=== PATIENT | female | born 1985 | race Caucasian/White ===

== ENCOUNTER 2016-12-01 08:30 | Emergency (ER) | payer BC, OTHER ==
[2016-12-01] MEDS ORDERED: Ketorolac INJ* 30 MG/ML 1 ML VIAL IV PUSH ONE (09:44)
[2016-12-01] MEDS ORDERED: Dexamethasone IV* 4 MG/ML 1 ML (4 MG) IV SLOW PU ONE (09:45)
[2016-12-01] MEDS ORDERED: diPHENhydraMINE IV* 25 MG in NS 0.9% 50 ML* 50 ML IVPB ONE (09:45)
[2016-12-01] MEDS ORDERED: diPHENhydraMINE IV* 50 MG/ML 1 ml VIAL (BENADRYL) IV ONE (09:45)
[2016-12-01] MEDS ORDERED: Promethazine INJ(RESTRICTED)* 25 MG/ML 1 ML VIAL IV ONE (09:46)
[2016-12-01] MEDS ORDERED: NS 0.9% 50 ML* 50 ML ONE (09:59)
[2016-12-01] MEDS ORDERED: Promethazine INJ(RESTRICTED)* 25 MG in NS 0.9% 50 ML* 50 ML IVPB ONE (10:00)
[2016-12-01] MEDS: NS 0.9% 1000 ML* 2,000 ML IV ONE ×2 (10:06→11:30)
[2016-12-01] MEDS ORDERED: Morphine INJ* 4 MG/ML 1 ML CARPUJECT IV ONE ×2 (13:03→16:18)
[2016-12-01] MEDS ORDERED: Ondansetron INJ* 2 MG/ML VIAL IV ONE (13:03)
[2016-12-01] MEDS ORDERED: HYDROcodone/ACETAMIN 5-325 MG* 1 TAB PO ONE (15:34)
[2016-12-01] MEDS ORDERED: Morphine INJ* 4 MG/ML 1 ML CARPUJECT ONE (15:53)
[2016-12-01 16:17] VITALS: BP 128/74
--- NOTE | 2016-12-03 11:42 | ED ---
Andrew Valderrama Adam, scribed for Travis Mcneil MD on 12/01/16 at 0939 . Headache - HPI Summary HPI Summary: A 31 y/o female presents to the ED c/o migraine headache that started yesterday when she was out running errands. She is unsure of the trigger, but has a significant migraine history and states this feels similar to prior migraines and is getting progressively worse. The headache is located behind her left eye and base of her neck and she is sensitive to light and smell. Patient also vomited once, but denies dizziness and lightheadedness. Patient states she receives Botox treatment for her headaches and her last treatment was on . Her symptoms usually get worse when she is at the end of the 3 month treatment. Scheduled for another treatment on 12/14/16. - History Of Current Complaint Chief Complaint: EDHeadache Stated Complaint: migraine Time Seen by Provider: 12/01/16 09:06 Hx Obtained From: Patient Onset/Duration: Sudden Onset, Started days ago - Yesterday Initially Headache Was: Moderate Currently Pain Is: Moderate Timing: Constant Character: Migraine Aggravating Factor: Other - Unknown Allevating Factors: Nothing Associated Signs And Symptoms: Vomiting - Once - Allergies/Home Medications Allergies/Adverse Reactions: Allergies Allergy/AdvReac Type Severity Reaction Status Date / Time Sulfa Antibiotics Allergy Hives Verified 11/25/16 12:11 Tramadol Allergy RASH AND Verified 11/25/16 12:11 HIVES ENVIRONMENTAL ALLERGIES Allergy SNEEZING, Uncoded 11/25/16 12:11 COUGH, ITCHY WATERY EYES, RUNNY NOSE, STUFFY Home Medications: Home Medications Acetaminophen TAB* [Tylenol TAB*] 500 mg PO Q6H PRN 12/01/16 [History Confirmed 12/01/16] Benadryl PO* 50 mg PO .ONCE 12/01/16 [History Confirmed 12/01/16] PMH/Surg Hx/FS Hx/Imm Hx Endocrine/Hematology History: Reports: Hx Anemia - HX OF BEFORE HYSTERECTOMY Denies: Hx Anticoagulant Therapy, Hx Diabetes, Hx Thyroid Disease Cardiovascular History: Reports: Other Cardiovascular Problems/Disorders - Mitral valve prolapse Denies: Hx Hypertension, Hx Pacemaker/ICD Respiratory History: Reports: Hx Asthma - EXERCISE INDUCED OR RESPIRATORY INFECTION, Hx Chronic Bronchitis, Hx Pneumonia, Hx Seasonal Allergies Denies: Hx Chronic Obstructive Pulmonary Disease (COPD) GI History: Reports: Hx Gastroesophageal Reflux Disease - per patient on Prilosec bid for condition, Other GI Disorders - eating disorder. anorexia History: Denies: Hx Dialysis, Hx Renal Disease Musculoskeletal History: Reports: Hx Scoliosis Denies: Hx Rheumatoid Arthritis, Hx Osteoporosis Sensory History: Denies: Hx Contacts or Glasses, Hx Eye Injury, Hx Hearing Aid, Hx Hearing Problem Opthamlomology History: Denies: Hx Contacts or Glasses, Hx Eye Injury Neurological History: Reports: Hx Headaches, Hx Migraine, Other Neuro Impairments/Disorders - PITIUTARY MASS CONTROL WITH MEDS Denies: Hx Dementia, Hx Seizures Psychiatric History: Reports: Hx Anxiety - CONTROL WITH MEDS, Hx Eating Disorder - anorexia/purging, Hx Depression, Hx Post Traumatic Stress Disorder, Hx Inpatient Treatment - [facility] [place], [facility] Tx, Hx Suicide Attempt Denies: Hx Panic Disorder, Hx of Violent Episodes Against Others, Hx Substance Abuse - Surgical History Surgery Procedure, Year, and Place: 2007 HYSTERECTOMY, [place] SURGERY ON LEFT INDEX FINGER RECONNECTED NERVE. 2006 RIGHT SHOULDER REPAIR, [place]. 2001 & 2003 DILATION & CURETTAGE,. BILATERAL MYRINGOTOMY WITH TUBES A CHILD. EYE SURGERY TO CORRECT EYES (CROSSED EYED), A CHILD, Hx Anesthesia Reactions: No - Immunization History Date of Tetanus Vaccine: One year ago. Date of Influenza Vaccine: 10/05/16 Infectious Disease History: No Infectious Disease History: Denies: Hx Clostridium Difficile, Hx Hepatitis, Hx Human Immunodeficiency Virus (HIV), Hx Shingles, Hx Tuberculosis, Traveled Outside the [place] in Last 30 Days - Family History Known Family History: Positive: None Negative: Cardiac Disease, Hypertension, Diabetes - Social History Alcohol Use: Occasionally Alcohol Amount: 0-3 drinks per week. last drink 2 nights ago Hx Substance Use: No Substance Use Type: Reports: Prescribed Hx Tobacco Use: No Smoking Status (MU): Never Smoked Tobacco Have You Smoked in the Last Year: No Review of Systems Constitutional: Negative Negative: Fever, Chills Eyes: Negative Negative: Erythema ENT: Negative Negative: Sore Throat Cardiovascular: Negative Negative: Chest Pain Respiratory: Negative Negative: Shortness Of Breath, Cough Positive: Vomiting. Negative: Abdominal Pain, Nausea Genitourinary: Negative Negative: dysuria, hematuria Musculoskeletal: Negative Negative: Myalgia Skin: Negative Negative: Rash Neurological: Other - Negative: dizziness, lightheadedness Positive: Headache - Sensitive to light and smell Psychological: Normal All Other Systems Reviewed And Are Negative: Yes Physical Exam - Summary Physical Exam Summary: Constitutional: Well-developed, Well-nourished, Alert. (-) Distressed Skin: Warm, Dry HENT: Normocephalic; Atraumatic Eyes: Conjunctiva normal Neck: Musculoskeletal ROM normal neck. (-) JVD, (-) Stridor, (-) Tracheal deviation Cardio: Rhythm regular, rate normal, Heart sounds normal; Intact distal pulses; The pedal pulses are 2+ and symmetric. Radial pulses are 2+ and symmetric. (-) Murmur Pulmonary/Chest wall: Effort normal. (-) Respiratory distress, (-) Wheezes, (-) Rales Abd: Soft, (-) Tenderness, (-) Distension, (-) Guarding, (-) Rebound Musculoskeletal: (-) Edema Lymph: (-) Cervical adenopathy Neuro: Alert, Oriented x3 Psych: Mood and affect Normal Vital Signs On Initial Exam: Initial Vitals Temp Pulse Resp BP Pulse Ox 98.3 F 82 16 122/79 100 12/01/16 08:34 12/01/16 08:34 12/01/16 08:34 12/01/16 08:34 12/01/16 08:34 - Cosby Coma Scale Coma Scale Total: 15 Diagnostics - Vital Signs Vital Signs Temp Pulse Resp BP Pulse Ox 12/01/16 08:34 98.3 F 82 16 122/79 100 - Laboratory Lab Statement: Any lab studies that have been ordered have been reviewed, and results considered in the medical decision making process. Headache Course/Dx - Diagnoses Provider Diagnoses: Migraine Discharge - Discharge Plan Condition: Stable Disposition: HOME Referrals: Wendy Rubin MD [Medical Doctor] - 2 Days Additional Instructions: Return to the emergency department for changing or worsening symptoms The documentation as recorded by the Andrew singh Adam accurately reflects the service I personally performed and the decisions made by , Travis Mcneil MD.
== END 2016-12-01 16:24 | disposition home or self-care (01) ==
LOC: ED 08:30
DX: G43.909 Migraine, unspecified, not intractable, without status migrainosus (principal); R11.10 Vomiting, unspecified
CPT/HCPCS: 96361; 96374; 99282; J1100; J1200; J1885; J2270; J2405; J2550

== ENCOUNTER → 2017-01-29 | Emergency (ER) | payer BC ==
[~2017-01-29] MED LIST: HYDROmorphone INJ* 1 MG/ML CARPUJECT SYRINGE IV SLOW PU ONE; Ketorolac INJ* 30 MG/ML 1 ML VIAL IV ONE; Metoclopramide IV* 5 MG/ML 2 ML VIAL IV ONE; NS 0.9% 1000 ML* 1,000 ML IV ONE; diPHENhydraMINE IV* 50 MG/ML 1 ml VIAL (BENADRYL) IV ONE
--- NOTE | 2017-01-29 10:55 | ED ---
Headache - HPI Summary HPI Summary: Patient presents with headache that is consistent with her typical migraine. This began yesterday and has continued into today. She has had a URI for approximately 2 weeks and began antibiotics yesterday for sinusitis. Since then she has felt nauseous, with right sided headache and right sided neck muscle pain. She denies fever, chills, vomiting, or vision changes. She is followed by Dr. Rubin for her 15 year migraine history. - History Of Current Complaint Chief Complaint: EDHeadache Stated Complaint: HEAD PRESSURE, NECK PAIN, SINUS INFECTION Time Seen by Provider: 01/29/17 08:52 Hx Obtained From: Patient, Family/Hospitality Intern Onset/Duration: Gradual Onset, Started days ago - 1 Initially Headache Was: Moderate Currently Pain Is: Moderate Timing: Constant Character: Dull, Pressure, Typical Headache, Migraine Location of Headache: Temporal - right Aggravating Factor: Bright Lights Allevating Factors: Nothing Associated Signs And Symptoms: Nausea, Sinus Pressure, Neck Pain - right sided into trapezius Related History: Similar Episode/DX As: - history of migraine - Allergies/Home Medications Allergies/Adverse Reactions: Allergies Allergy/AdvReac Type Severity Reaction Status Date / Time Sulfa Antibiotics Allergy Hives Verified 01/29/17 08:48 Tramadol Allergy RASH AND Verified 01/29/17 08:48 HIVES ENVIRONMENTAL ALLERGIES Allergy SNEEZING, Uncoded 01/29/17 08:48 COUGH, ITCHY WATERY EYES, RUNNY NOSE, STUFFY PMH/Surg Hx/FS Hx/Imm Hx Endocrine/Hematology History: Reports: Hx Anemia - HX OF BEFORE HYSTERECTOMY Denies: Hx Anticoagulant Therapy, Hx Diabetes, Hx Thyroid Disease Cardiovascular History: Reports: Other Cardiovascular Problems/Disorders - Mitral valve prolapse Denies: Hx Hypertension, Hx Pacemaker/ICD Respiratory History: Reports: Hx Asthma - EXERCISE INDUCED OR RESPIRATORY INFECTION, Hx Chronic Bronchitis, Hx Pneumonia, Hx Seasonal Allergies Denies: Hx Chronic Obstructive Pulmonary Disease (COPD) GI History: Reports: Hx Gastroesophageal Reflux Disease - per patient on Prilosec bid for condition, Other GI Disorders - eating disorder. anorexia History: Denies: Hx Dialysis, Hx Renal Disease Musculoskeletal History: Reports: Hx Scoliosis Denies: Hx Rheumatoid Arthritis, Hx Osteoporosis Sensory History: Denies: Hx Contacts or Glasses, Hx Eye Injury, Hx Hearing Aid, Hx Hearing Problem Opthamlomology History: Denies: Hx Contacts or Glasses, Hx Eye Injury Neurological History: Reports: Hx Headaches, Hx Migraine, Other Neuro Impairments/Disorders - PITIUTARY MASS CONTROL WITH MEDS Denies: Hx Dementia, Hx Seizures Psychiatric History: Reports: Hx Anxiety - CONTROL WITH MEDS, Hx Eating Disorder - anorexia/purging, Hx Depression, Hx Post Traumatic Stress Disorder, Hx Inpatient Treatment - [facility] [place], Hx Community Mental Health Tx, Hx Suicide Attempt Denies: Hx Panic Disorder, Hx of Violent Episodes Against Others, Hx Substance Abuse - Surgical History Surgery Procedure, Year, and Place: 2007 HYSTERECTOMY, [place] SURGERY ON LEFT INDEX FINGER RECONNECTED NERVE. 2006 RIGHT SHOULDER REPAIR, [place]. 2001 & 2003 DILATION & CURETTAGE,. BILATERAL MYRINGOTOMY WITH TUBES A CHILD. EYE SURGERY TO CORRECT EYES (CROSSED EYED), A CHILD, Hx Anesthesia Reactions: No - Immunization History Date of Tetanus Vaccine: One year ago. Date of Influenza Vaccine: 10/05/16 Infectious Disease History: No Infectious Disease History: Denies: Hx Clostridium Difficile, Hx Hepatitis, Hx Human Immunodeficiency Virus (HIV), Hx Shingles, Hx Tuberculosis, Traveled Outside the in Last 30 Days - Family History Known Family History: Positive: None Negative: Cardiac Disease, Hypertension, Diabetes - Social History Occupation: Employed Part-time Lives: With Family Alcohol Use: Occasionally Alcohol Amount: 0-3 drinks per week. last drink 2 nights ago Hx Substance Use: No Substance Use Type: Reports: Prescribed Hx Tobacco Use: No Smoking Status (MU): Never Smoked Tobacco Have You Smoked in the Last Year: No Review of Systems Negative: Fever, Chills Negative: Sore Throat, Ear Ache Positive: Nausea. Negative: Vomiting, Diarrhea Positive: Headache. Negative: Weakness, Paresthesia, Numbness All Other Systems Reviewed And Are Negative: Yes Physical Exam Triage Information Reviewed: Yes Vital Signs On Initial Exam: Initial Vitals Temp Pulse Resp BP Pulse Ox 98.4 F 80 15 118/67 100 01/29/17 08:41 01/29/17 08:41 01/29/17 08:41 01/29/17 08:41 01/29/17 08:41 Vital Signs Reviewed: Yes Appearance: Positive: Well-Appearing, No Pain Distress, Well-Nourished Skin: Positive: Warm, Skin Color Reflects Adequate Perfusion, Dry, Soft Head/Face: Positive: Normal Head/Face Inspection Eyes: Positive: EOMI, FLAKITA - baseline, Conjunctiva Clear ENT: Positive: Hearing grossly normal, Pharynx normal Neck: Positive: Supple, No Lymphadenopathy, Tenderness @ - right trapezius muscle pain Respiratory/Lung Sounds: Positive: Breath Sounds Present Cardiovascular: Positive: RRR Musculoskeletal: Negative: Edema Left, Edema Right Neurological: Positive: Sensory/Motor Intact, Alert, Oriented to Person Place, Time, CN Intact II-III - grossly, NV Bundle Intact Distally, Normal Gait Psychiatric: Positive: Affect/Mood Appropriate AVPU Assessment: Alert - Cisco Coma Scale Coma Scale Total: 15 Diagnostics - Vital Signs Vital Signs Temp Pulse Resp BP Pulse Ox 01/29/17 08:41 98.4 F 80 15 118/67 100 - Laboratory Lab Statement: Any lab studies that have been ordered have been reviewed, and results considered in the medical decision making process. Re-Evaluation - Re-Evaluation First Eval Re-Evaluation Time: 11:05 Change: Unchanged Comment: patient's headache continues. Second Eval Re-Evaluation Time: 12:05 Change: Improved Comment: Patient's pain has resolved. Headache Course/Dx - Diagnoses Differential Diagnosis/HQI/PQRI: Migraine, Sinus Headache, Tension Headache, Viral Syndrome Provider Diagnoses: Migraine Discharge - Discharge Plan Condition: Stable Disposition: HOME Patient Education Materials: Migraine Headache (ED) Referrals: Sylvia Baeza MD [Primary Care Provider] - Wendy Rubin MD [Medical Doctor] - Additional Instructions: Please continue your antibiotics, drink extra fluids and rest. Follow-up with Dr. Rubin in 1-3 days to discuss your symptoms. Return to the emergency department if your symptoms worsen.
[2017-01-29 11:43] VITALS: BP 124/65
== END | disposition home or self-care (01) ==
LOC: ED 08:31
DX: G43.909 Migraine, unspecified, not intractable, without status migrainosus (principal); R51 Headache; R11.0 Nausea; M54.2 Cervicalgia
CPT/HCPCS: 96374; 96375; 99283; J1170; J1200; J1885; J2765

== ENCOUNTER → 2017-04-10 16:03 | Emergency (ER) | payer BC ==
[2017-04-10 16:12] VITALS: BP 141/85
--- NOTE | 2017-04-10 16:29 | ED ---
Upper Extremity Pain - HPI Summary HPI Summary: Patient fell backwards and caught herself with her right hand. She had immediate pain at the base of her thumb with mild swelling. She denies numbness or tingling and no prior injury. - History of Current Complaint Chief Complaint: EDExtremityUpper Stated Complaint: RT HAND INJURY Time Seen by Provider: 04/10/17 16:14 Hx Obtained From: Patient Mechanism Of Injury: Fall From A Standing Position Onset/Duration: Started Minutes Ago Timing: Constant Severity Initially: Severe Severity Currently: Severe Pain Location: Hand Character: Sharp, Aching Aggravating Factor(s): Other - touch Alleviating Factor(s): Nothing Associated Signs & Symptoms: Positive: Swelling. Negative: Numbness/Tingling Related History: Dominant Hand Right - Allergies/Home Medications Allergies/Adverse Reactions: Allergies Allergy/AdvReac Type Severity Reaction Status Date / Time Sulfa Antibiotics Allergy Hives Verified 01/29/17 08:48 Tramadol Allergy RASH AND Verified 01/29/17 08:48 HIVES ENVIRONMENTAL ALLERGIES Allergy SNEEZING, Uncoded 01/29/17 08:48 COUGH, ITCHY WATERY EYES, RUNNY NOSE, STUFFY PMH/Surg Hx/FS Hx/Imm Hx Endocrine/Hematology History: Reports: Hx Anemia - HX OF BEFORE HYSTERECTOMY Denies: Hx Anticoagulant Therapy, Hx Diabetes, Hx Thyroid Disease Cardiovascular History: Reports: Other Cardiovascular Problems/Disorders - Mitral valve prolapse Denies: Hx Hypertension, Hx Pacemaker/ICD Respiratory History: Reports: Hx Asthma - EXERCISE INDUCED OR RESPIRATORY INFECTION, Hx Chronic Bronchitis, Hx Pneumonia, Hx Seasonal Allergies Denies: Hx Chronic Obstructive Pulmonary Disease (COPD) GI History: Reports: Hx Gastroesophageal Reflux Disease - per patient on Prilosec bid for condition, Other GI Disorders - eating disorder. anorexia History: Denies: Hx Dialysis, Hx Renal Disease Musculoskeletal History: Reports: Hx Scoliosis Denies: Hx Rheumatoid Arthritis, Hx Osteoporosis Sensory History: Denies: Hx Contacts or Glasses, Hx Eye Injury, Hx Hearing Aid, Hx Hearing Problem Opthamlomology History: Denies: Hx Contacts or Glasses, Hx Eye Injury Neurological History: Reports: Hx Headaches, Hx Migraine, Other Neuro Impairments/Disorders - PITIUTARY MASS CONTROL WITH MEDS Denies: Hx Dementia, Hx Seizures Psychiatric History: Reports: Hx Anxiety - CONTROL WITH MEDS, Hx Eating Disorder - anorexia/purging, Hx Depression, Hx Post Traumatic Stress Disorder, Hx Inpatient Treatment - [facility] – [place], Hx Community Mental Health Tx, Hx Suicide Attempt Denies: Hx Panic Disorder, Hx of Violent Episodes Against Others, Hx Substance Abuse - Surgical History Surgery Procedure, Year, and Place: 2007 HYSTERECTOMY, [place] SURGERY ON LEFT INDEX FINGER RECONNECTED NERVE. 2006 RIGHT SHOULDER REPAIR, [place]. 2001 & 2003 DILATION & CURETTAGE,. BILATERAL MYRINGOTOMY WITH TUBES A CHILD. EYE SURGERY TO CORRECT EYES (CROSSED EYED), A CHILD, Hx Anesthesia Reactions: No - Immunization History Date of Tetanus Vaccine: One year ago. Date of Influenza Vaccine: 10/05/16 Infectious Disease History: No Infectious Disease History: Denies: Hx Clostridium Difficile, Hx Hepatitis, Hx Human Immunodeficiency Virus (HIV), Hx Shingles, Hx Tuberculosis, Traveled Outside the [place] in Last 30 Days - Family History Known Family History: Positive: None Negative: Cardiac Disease, Hypertension, Diabetes - Social History Occupation: Student Lives: With Family Alcohol Use: Occasionally Alcohol Amount: 0-3 drinks per week. last drink 2 nights ago Hx Substance Use: No Substance Use Type: Reports: Prescribed Hx Tobacco Use: No Smoking Status (MU): Never Smoked Tobacco Have You Smoked in the Last Year: No Review of Systems Positive: Myalgia, Edema. Negative: Decreased ROM Negative: Bruising Negative: Paresthesia, Numbness All Other Systems Reviewed And Are Negative: Yes Physical Exam Triage Information Reviewed: Yes Vital Signs On Initial Exam: Initial Vitals Temp Pulse Resp BP Pulse Ox 98.1 F 77 16 141/85 100 04/10/17 16:09 04/10/17 16:09 04/10/17 16:09 04/10/17 16:09 04/10/17 16:09 Vital Signs Reviewed: Yes Appearance: Positive: Well-Appearing, Well-Nourished, Pain Distress Skin: Positive: Warm, Skin Color Reflects Adequate Perfusion, Dry, Soft Head/Face: Positive: Normal Head/Face Inspection Eyes: Positive: EOMI, FLAKITA, Conjunctiva Clear ENT: Positive: Hearing grossly normal Respiratory/Lung Sounds: Positive: Breath Sounds Present Cardiovascular: Positive: RRR Musculoskeletal: Positive: Strength/ROM Intact, Pain @ - TTP palmar aspect of base of right thumb; non-tender DRUJ Neurological: Positive: Sensory/Motor Intact, Alert, Oriented to Person Place, Time, NV Bundle Intact Distally, Normal Gait Psychiatric: Positive: Affect/Mood Appropriate AVPU Assessment: Alert Diagnostics - Vital Signs Vital Signs Temp Pulse Resp BP Pulse Ox 04/10/17 16:09 98.1 F 79 16 141/85 100 - Laboratory Lab Statement: Any lab studies that have been ordered have been reviewed, and results considered in the medical decision making process. - Radiology No standard instances Xray Interpretation: No Acute Changes Radiology Interpretation Completed By: Radiologist Course/Dx - Diagnoses Differential Diagnosis/HQI/PQRI: Positive: Arthritis, Bursitis, Contusion, Fracture (Closed), Strain, Sprain Provider Diagnoses: Hand contusion, Strain of right thumb Discharge - Discharge Plan Condition: Stable Disposition: HOME Patient Education Materials: Contusion in Adults (ED) Referrals: Sylvia Baeza MD [Primary Care Provider] - Additional Instructions: Wear your splint to protect you as your pain improves. Come out of the splint several times daily to perform gentle range of motion exercises to avoid stiffness. Elevate your hand above your heart and apply ice for 20 minutes several times daily to decrease swelling and pain. Use ibuprofen 600mg three times daily with meals for the next 3-5 days to decrease swelling and pain as well. Follow-up with your primary care provider if symptoms do not begin to improve in the next 7-10 days.
--- NOTE | 2017-04-10 17:02 | RAD ---
INDICATION: Right hand injury. TECHNIQUE: 4 views of the right hand were obtained. FINDINGS: The bones are in normal alignment. No fracture is seen. Joint spaces appear maintained. IMPRESSION: NO EVIDENCE FOR FRACTURE.
== END | disposition home or self-care (01) ==
LOC: ED 16:03
DX: S60.221A Contusion of right hand, initial encounter (principal); S56.311A Strain of extensor or abductor muscles, fascia and tendons of right thumb at forearm level, initial encounter; R60.0 Localized edema; W19.XXXA Unspecified fall, initial encounter; Y93.9 Activity, unspecified; Y92.9 Unspecified place or not applicable
CPT/HCPCS: 99282

== ENCOUNTER 2017-04-20 06:03 | Observation (INO) | payer BC ==
--- NOTE | 2017-04-13 12:44 | HP ---
PREOPERATIVE HISTORY AND PHYSICAL: DATE OF OFFICE VISIT: 04/12/17 DATE OF SURGERY: 04/24/17 ATTENDING SURGEON: Jose Manuel Lynch MD PROCEDURE: Right hip arthroscopy with osteoplasty and labral repair. CHIEF COMPLAINT: Right hip pain. HISTORY OF PRESENT ILLNESS: Devang is a 31-year-old female who presents to the clinic for right hip p ain and catching for several months due to a labral tear of the hip. She has failed conservative me asures and therefore agreed to undergo a right hip arthroscopy with osteoplasty and labral repair wi Dr. Lynch on 04/24/17. PAST MEDICAL HISTORY: 1. Asthma. 2. Depression. 3. Anxiety. 4. History of eating disorder. PAST SURGICAL HISTORY: 1. Shoulder reduction. 2. Eye surgery as a child. 3. Ear tubes. 4. Hysterectomy. 5. Mobile teeth. MEDICATIONS: 1. Meloxicam 7.5 mg 1 by mouth as needed. 2. Zofran ODT 8 mg take 1 by mouth every 6 hours as needed for nausea. 3. Zyrtec 10 mg 1 by mouth every day. 4. Benadryl 25 mg 1 by mouth every 6 hours as needed. 5. Xopenex HFA 45 mcg/ACT 2 puffs 4 times a day as needed. 6. Vitamin D 400 units 2 tabs by mouth daily. 7. Multivitamin 1 by mouth daily. 8. Botox for migraines. 9. Ativan 0.5 mg one-half to one by mouth every 6 hours as needed for anxiety. ALLERGIES: SULFA, BACTRIM, CHOCOLATE, TOMATOES, ENVIRONMENTAL and FLUOXETINE. FAMILY HISTORY: Positive for prostate cancer. 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 She denies tobacco use. She reports occasion al alcohol use. She exercises occasionally. REVIEW OF SYSTEMS: General: Negative for fevers, chills, or night sweats. No known anesthesia pro blems. HEENT: Positive for migraines. Denies lightheadedness or syncopal episodes. Integumentary : Negative for abrasions, lesions, or open wounds. Cardiothoracic: Negative for chest pain, palpi tations, or edema. Negative for hypertension. Pulmonary: Negative for shortness of breath with exe rtion, chronic cough, or COPD. GI: Negative for nausea, vomiting, diarrhea, or GERD. : Negativ e for nocturia, urinary frequency, history of UTIs, or kidney problems. Musculoskeletal: Positive for the current complaint. Neuro: Negative for numbness or paresthesias. Negative for history of seizure, stroke, or epilepsy. Endocrine: Negative for diabetes or thyroid issues. Heme: Negative for easy bruising, excessive bleeding, or history of DVT or PE. Infectious Disease: Negative for history of MRSA. PHYSICAL EXAMINATION GENERAL: A well-developed, well-nourished 31-year-old female, in no acute distress. Alert and orie nted x3. Appropriate mood and affect. VITALS: Height 65, weight 145, pulse 77, blood pressure 111/78, temperature 97.4, and BMI 24.1. HEENT: Normocephalic, atraumatic. PERRLA. NECK: Supple. Throat clear. PULMONARY: Lungs clear to auscultation bilaterally. No wheezes, rhonchi, or rales. CARDIO: Regular rate and rhythm. S1, S2. No murmurs, rubs, or gallops. No edema. ABDOMEN: Positive bowel sounds. Soft and nontender. NEUROLOGIC: Alert and oriented x3. Cranial nerves grossly intact. Sensation intact to light touch . MUSCULOSKELETAL: Right hip, skin is intact. No tenderness to palpation. Positive Ruben test. Ab le to flex comfortably to 90 and pain with flexion to 100 degrees. Positive FADIR and positive MANUEL . She has no pain on abduction of the hip. No pain with log roll; +2 dorsalis pedis and posterior tibialis pulse. Sensation intact to light touch distally. 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 IMPRESSION: Right hip labral tear. PLAN/RECOMMENDATIONS: The patient is scheduled to undergo a right hip arthroscopy with osteoplasty and labral repair. She will be admitted after the surgery for IV pain control because of her allerg ies to NSAIDS and ORAL NARCOTICS. She will also be getting radiation after the surgery to prevent h eterotopic ossification. She will return to the office in 10 to 14 days postop for followup and sut ure removal. IV pain meds will be used for postoperative pain management initially. ELKE LOPEZ, POPYP [id number]/[facility] #: [id number]
[~2017-04-20 06:03] MED LIST changes: +Dexamethasone IV* 4 MG/ML 1 ML (4 MG) IV SLOW PU ONE; +Famotidine IV* 10 MG/ML 2 ML (20 mg) IV ONE; -HYDROmorphone INJ* 1 MG/ML CARPUJECT SYRINGE IV SLOW PU ONE; -Ketorolac INJ* 30 MG/ML 1 ML VIAL IV ONE; -Metoclopramide IV* 5 MG/ML 2 ML VIAL IV ONE; -NS 0.9% 1000 ML* 1,000 ML IV ONE; -diPHENhydraMINE IV* 50 MG/ML 1 ml VIAL (BENADRYL) IV ONE
[2017-04-20] MEDS ORDERED: Famotidine IV* 10 MG/ML 2 ML (20 mg) ONE (06:06)
[2017-04-20] MEDS ORDERED: Dexamethasone IV* 4 MG/ML 1 ML (4 MG) ONE (06:06)
[2017-04-20] MEDS ORDERED: ceFAZolin 2 GM PREMIX(*) 2 GM/50 ML BAG IVPB ONE (06:06)
[2017-04-20] MEDS ORDERED: Buffered Lidocaine 0.9% SYRIN* 5 ML/SYR SYRINGE ONE (06:06)
[2017-04-20] MEDS ORDERED: fentaNYL* 50 MCG/ML 5 ML VIAL (250 MCG VIAL) ONE (06:24)
[2017-04-20] MEDS ORDERED: Midazolam* 1 MG/ML 5 ML VIAL (5 MG) ONE (06:24)
[2017-04-20] MEDS ORDERED: Atracurium* 10 MG/ML 10 ML VIAL ONE (06:24)
[2017-04-20] MEDS ORDERED: Ketorolac INJ* 30 MG/ML 1 ML VIAL ONE ×2 (06:25→07:21)
[2017-04-20] MEDS ORDERED: Ondansetron INJ* 2 MG/ML VIAL ONE ×2 (06:25→12:09)
[2017-04-20] MEDS ORDERED: Lidocaine 2% PF * 5 ML VIAL ONE (06:25)
[2017-04-20] MEDS ORDERED: Propofol* 10 MG/ML 20 ML BTL IV PUSH ONE (06:25)
[2017-04-20] MEDS ORDERED: Levalbuterol 0.63MG/3ML NEB INH ONE (06:45)
[2017-04-20] MEDS ORDERED: Levalbuterol 1.25MG/0.5ML NEB ONE (07:00)
[2017-04-20] MEDS ORDERED: Bupivacaine 0.25% SDV* 30 ML ONE (07:21)
[2017-04-20] MEDS ORDERED: fentaNYL* 50 MCG/ML 2 ML VIAL (100 MCG VIAL) ONE ×2 (08:24→11:28)
[2017-04-20] MEDS ORDERED: oxyCODONE/Acetamin 5/325 MG* TAB PO PRN (08:32)
[2017-04-20] MEDS ORDERED: Ondansetron INJ* 2 MG/ML VIAL IV PRN (08:32)
[2017-04-20] MEDS ORDERED: DiMENhydriNATE IV* 50 MG/ML VIAL IV PUSH PRN (08:32)
[2017-04-20] MEDS ORDERED: Desflurane* 240 ML INH ONE (09:42)
[2017-04-20] MEDS ORDERED: Acetaminophen TAB* 325 MG PO PRN (11:03)
[2017-04-20] MEDS ORDERED: diPHENhydraMINE IV* 50 MG/ML 1 ml VIAL (BENADRYL) IV PRN (11:09)
[2017-04-20] MEDS ORDERED: LORazepam TAB(*) 1 MG PO PRN (11:11)
[2017-04-20] MEDS ORDERED: Levalbuterol HFA INHALER* 1 PUFF MDI INH PRN (11:11)
[2017-04-20] MEDS ORDERED: Meloxicam(NF) 7.5 MG TAB PO PRN (11:11)
[2017-04-20] MEDS ORDERED: HYDROmorphone* 1 MG/ML 1 ML SYR ONE (11:28)
[2017-04-20] MEDS: fentaNYL* 50 MCG/ML 2 ML VIAL (100 MCG VIAL) IV PRN ×2 (11:31→11:38)
[2017-04-20] MEDS: HYDROmorphone* 1 MG/ML 1 ML SYR IV PRN ×4 (11:33→11:56)
--- NOTE | 2017-04-20 11:42 | RAD ---
INDICATION: RIGHT hip arthroscopy with osteoplasty. COMPARISON: December 07, 2016 MRI. TECHNIQUE: 89 seconds fluoroscopy. FINDINGS: Spot images document arthroscopy instruments at the RIGHT hip. IMPRESSION: Procedural fluoroscopy. CPT II Codes: 6045F
[2017-04-20] MEDS ORDERED: PROCHLORPERAZINE INJ 5 MG/ML 2 ML VIAL IV PRN (12:54)
[2017-04-20] MEDS: Metoclopramide IV* 5 MG/ML 2 ML VIAL IV PRN ×2 (13:12→19:42)
[2017-04-20] MEDS ORDERED: MELOXICAM 7.5 MG PO PRN (13:44)
[2017-04-20] MEDS ORDERED: Scopolamine 1.5 mg* PATCH ONE (15:53)
[2017-04-20] MEDS: ceFAZolin VIAL(*) 1 GM in NS 0.9% 50 ML* 50 ML IVPB SCH ×2 (15:59→23:29)
[2017-04-20] MEDS ORDERED: Scopolamine 1.5 mg* PATCH TRANSDERM SCH (16:00)
[2017-04-20] MEDS: Ondansetron INJ* 2 MG/ML VIAL IV PRN (17:32)
[2017-04-20] MEDS: HYDROmorphone* 1 MG/ML 1 ML SYR IV SLOW PU PRN (19:34)
[2017-04-20] MEDS: Docusate CAP* 100 MG PO SCH (19:35)
[2017-04-21] MEDS: HYDROmorphone* 1 MG/ML 1 ML SYR IV SLOW PU PRN ×5 (02:20→21:44)
[2017-04-21] MEDS: Ondansetron INJ* 2 MG/ML VIAL IV PRN ×2 (07:47→16:42)
[2017-04-21] MEDS: Docusate CAP* 100 MG PO SCH ×2 (07:49→21:40)
[2017-04-21] MEDS: Cetirizine* 10 MG TAB PO SCH (07:49)
[2017-04-21] MEDS: HYDROmorphone TAB* 2 MG PO PRN ×2 (07:49→15:14)
[2017-04-21] MEDS: ceFAZolin VIAL(*) 1 GM in NS 0.9% 50 ML* 50 ML IVPB SCH (07:49)
--- NOTE | 2017-04-21 08:57 | PN ---
Progress Note - Progress Note SOAP: Subjective: []Patient seen OOB in chair, getting dressed and ready to go down for radiation session to right hip. Pain management is "up and down", but currently failrly comfortable. Mild naussea, but improved with scopolamine patch. Will work with PT later today when back from radiology and hopes to go home in the afternoon. Objective: [] Vital Signs Temp 98.1 F 04/21/17 07:53 Pulse 66 04/21/17 07:53 Resp 18 04/21/17 08:00 BP 115/74 04/21/17 07:53 Pulse Ox 98 04/21/17 08:00 Intake & Output 04/20/17 04/21/17 04/21/17 18:59 06:59 18:59 Intake Total 1860 1314 Output Total 1165 300 0 Balance 695 1014 0 Intake: IV Fluids 1500 844 LR 844 lr 1500 Oral 360 470 Output: Urine 1015 300 0 Emesis 150 Right hip dressings are dry and intact +DF/PF right ankle sensation and circulation intact distally calf without edema or tenderness Assessment: []s/p right hip arthroscopy, osteoplasty, repair of labral tear POD #1 Plan: []Radiation treatment today to help prevent heterotopic bone formation in the hip joint PWB 50% next 2 weeks no hip flexion greater than 90 degrees continued pain and nausea management home this afternoon follow up with Dr. Lynch as scheduled
[2017-04-21] MEDS ORDERED: CABERGOLINE 0.5 MG PO SCH (09:00)
--- NOTE | 2017-04-21 10:50 | RAD ---
Indication: Post RIGHT hip labral repair. High risk for heterotopic bone formation with contraindication to routine NSAID prophylaxis. Radiation planning. Comparison: No relevant prior exams available on the [facility] for comparison. Technique: Radiation simulation CT. 2.5 mm contiguous axial sections were obtained from the pelvic inlet through the proximal femurs without contrast. Report: There is infiltrative edema and subcutaneous emphysema about the RIGHT hip secondary to hip arthroscopy one day prior. Postsurgical change of cam bumpectomy noted. No fracture or bone fragments within the soft tissues evident. Physiologic range small volume of free pelvic fluid. Post hysterectomy. IMPRESSION: Radiation planning CT.
[2017-04-21] MEDS ORDERED: Cyclobenzaprine TAB* 10 MG PO PRN (12:46)
--- NOTE | 2017-04-21 16:48 | PN ---
Progress Note - Progress Note Note: Pt seen at 6:50 am. Doing well. 2 doses of IV dilaudid overnight. nausea with mild migraine symptoms. Able to ambulate well with crutches. Temp Pulse Resp BP Pulse Ox 98.2 F 91 20 117/74 100 04/21/17 12:07 04/21/17 12:07 04/21/17 15:14 04/21/17 12:07 04/21/17 12:07 NAD. Right hip: Dressing in place. Able to flex hip to 80 degrees well. Calf soft, NT. SILT 1st DWS, medial, lateral, dorsal, plantar foot. 2+ PT pulse. Able to flex/ext ankle and toes. A/P 31 yo F s/p R hip arthroscopy with CAM osteoplasty and labral repair. 50% TDWB PT -per protocol Radiation today for HO prophylaxis Dispo when pain controlled will try oral dilaudid today.
[2017-04-21] MEDS: Metoclopramide IV* 5 MG/ML 2 ML VIAL IV PRN (21:44)
--- NOTE | 2017-04-21 22:23 | RADMED ---
RADIATION ONCOLOGY INPATIENT BRIEF NOTE: DATE OF SERVICE: 04/20/17 - Inpatient, room #331-01 HISTORY OF PRESENT ILLNESS: Devang Meneses is a 31-year-old woman with right hip pain, status post right hip arthroscopy with osteoplasty and labral repair performed yesterday. I saw her on 04/08/17, recommended by her surgeon to consider prophylactic radiation therapy against heterotopic ossification, as she has intolerance to nonsteroidal anti-inflammatories with rebound migraine. I spoke to Dr. Lynch this morning, and also spoke to the patient and reviewed the logistics and rationale for single fraction radiation therapy for heterotopic ossification prophylaxis. I explained the risks and benefits of treatment as well as alternatives and the acute and long-term frequent and uncommon toxicities, and answered her questions. She is feeling reasonably well considering only one day postop, and had no particular questions or concerns, and requested to proceed with treatment. She will undergo CT simulation today. It is my intention to deliver a single fraction 700 cGy on postop day 1, 04/21/17, as long as everything goes as planned. I typically do not schedule routine followup visits with patients after this treatment, but I am available with any additional questions or concerns and advised her to contact me. Thank you for giving me the opportunity to participate in the care of this very pleasant patient. [id number]/[facility] #: [id number] CRYS
[2017-04-22] MEDS: HYDROmorphone TAB* 2 MG PO PRN ×3 (00:05→12:21)
[2017-04-22] MEDS: Docusate CAP* 100 MG PO SCH (08:45)
[2017-04-22] MEDS: Cetirizine* 10 MG TAB PO SCH (08:45)
[2017-04-22] MEDS: Metoclopramide IV* 5 MG/ML 2 ML VIAL IV PRN (09:20)
--- NOTE | 2017-04-22 10:51 | PN ---
Progress Note - Progress Note SOAP: Subjective: 31 y/o female s/p right hip arthroscopy with labrum repair 04/20/[address] Lynch. Patient states pain better controlled with dialudid overnight, ambulating well with crutches, aware of WB restrictions. VSS overnight, afebrile. Eager for D/C Objective: General- Well appearing, NAD, sitting comfortably. MSK- Surgical dressing intact, no drainage noted, no erythema noted. + DF/PF b /l les, neg homas sign b/l, sensation grossly intact. Vital Signs Temp 98.1 F 04/22/17 07:04 Pulse 86 04/22/17 07:04 Resp 18 04/22/17 09:16 BP 115/64 04/22/17 07:04 Pulse Ox 100 04/22/17 07:04 Intake & Output 04/21/17 04/22/17 04/22/17 18:59 06:59 18:59 Intake Total 881 310 320 Output Total 2100 1500 500 Balance -1219 -1190 -180 Intake: IV Fluids 4 10 IVPB 367 ABX - CEFAZOLIN 63 LR 304 Oral 510 300 320 Output: Urine 2100 1500 500 Assessment: 31 y/o female s/p right hip arthroscopy with labrum repair 04/20/[address] Lynch. Plan: - Continue PT exercises and amublation - Dilaudid, Mobic, flexeril for pain control as directed - Follow up with. DR Lynch within 10 days Active Medications Generic Name Dose Route Start Last Admin Trade Name Freq PRN Reason Stop Dose Admin Acetaminophen 650 mg 04/20/17 11:03 Tylenol Tab* PO Q4H PRN PAIN OR TEMPERATURE Cetirizine HCl 10 mg 04/21/17 09:00 04/22/17 08:45 Zyrtec* PO 10 mg QAM DOMENICA Administration Cyclobenzaprine HCl 10 mg 04/21/17 12:46 04/21/17 13:54 Flexeril Tab* PO 10 mg TID PRN Administration SPASMS Diphenhydramine HCl 25 mg 04/20/17 11:09 Benadryl Iv* IV Q6H PRN itching Docusate Sodium 100 mg 04/20/17 21:00 04/22/17 08:45 Colace Cap* PO 100 mg BID DOMENICA Administration Hydromorphone HCl 2 mg 04/20/17 11:09 04/22/17 07:16 Dilaudid Tab* PO 2 mg Q4H PRN Administration PAIN Hydromorphone HCl 0.5 mg 04/20/17 11:09 04/21/17 21:44 Dilaudid Iv* IV SLOW PU 0.5 mg Q2H PRN Administration PAIN Lactated Ringer's 1,000 mls @ 100 mls/hr 04/20/17 12:00 04/20/17 23:35 Lactated Ringers 1000 Ml Bag* IV 100 mls/hr PER RATE DOMENICA Administration Levalbuterol HCl 2 puff 04/20/17 11:11 Xopenex Hfa Inhaler* INH Q4H PRN SHORTNESS OF BREATH Lorazepam 1 mg 04/20/17 11:11 Ativan Tab(*) PO TID PRN ANXIETY Meloxicam 7.5 mg 04/20/17 13:44 04/20/17 15:44 Mobic(Nf) PO 7.5 mg Q12H PRN Administration PAIN Metoclopramide HCl 10 mg 04/20/17 13:00 04/22/17 09:20 Reglan Iv* IV 10 mg Q6H PRN Administration NAUSEA/VOMITING (Cabergoline [ 0.5 mg 04/21/17 09:00 04/21/17 07:44 Cabergoline] 0.5 Mg) PO Not Given MoTh@0900 DOMENICA Ondansetron HCl 4 mg 04/20/17 11:09 04/21/17 16:42 Zofran Inj* IV 4 mg Q6H PRN Administration nausea Scopolamine 1 patch 04/20/17 16:00 04/20/17 15:56 Transderm-Scop 1.5 Mg Patch* TRANSDERM 1 patch Q72H DOMENICA Administration
[2017-04-22 11:21] VITALS: BP 123/76
--- NOTE | 2017-04-23 01:40 | DS ---
DISCHARGE SUMMARY: DATE OF ADMISSION: 04/20/17 DATE OF DISCHARGE: 04/22/17 CHIEF COMPLAINT: 1. Right hip pain. 2. Asthma. 3. Depression. 4. Anxiety. 5. History of eating disorder. DISCHARGE DIAGNOSES: 1. Status post right hip arthroscopy with osteoplasty and labral repair. 2. Asthma. 3. Depression. 4. Anxiety. 5. History of eating disorder. PROCEDURE: Right hip arthroscopy with osteoplasty and labral repair. CONSULTATIONS: 1. Physical therapy. 2. Radiation therapy. BRIEF HISTORY: Ms. Meneses is a very pleasant 31-year-old female with a longstanding history of la bral repair in her right hip, who failed conservative treatment and elected to undergo an arthroscop ic labral repair. HOSPITAL COURSE: Ms. Meneses was admitted on 04/20/17 where she underwent an uncomplicated right h ip arthroscopic examination with labral repair. Postoperatively, she recovered in the surgical short stay unit. On postoperative day 1, her Bassett was removed and she was voiding on her own. She was seen by Dr. Robbins in Radiation Therapy and underwent radiation treatment to her right hip x1 dose. She was able to bear weight 50% on the right lower extremity without difficulty. She advanced appr opriately with physical therapy. By postoperative day 2, she was orthopedically and medically stabl e for discharge to go home with home services. PHYSICAL EXAMINATION: General: Well appearing, in no acute distress. Alert and oriented, sitting in bed comfortably. Vital Signs: Temperature 98.1, pulse 86, respirations 18, blood pressure 115/64 , pulse oxygenation 100%. Right hip shows the surgical dressing is intact with no drainage or eryth david noted. Minimally tender to palpation, positive plantar flexion and dorsiflexion in bilateral lo wer extremities. Negative Ricky sign bilaterally. Sensation is grossly intact. DISCHARGE MEDICATIONS: 1. Tylenol 600 mg p.o. q.4 hours p.r.n., not to exceed 4000 mg in a day. 2. Cabergoline 0.5 mg p.o. 3. Zyrtec Allergy 10 mg p.o. q. a.m. 4. Flexeril 10 mg p.o. t.i.d. p.r.n. 5. Colace 100 mg p.o. b.i.d. 6. Dilaudid 2 mg p.o. q.4 hours p.r.n. 7. Ativan 1 mg p.o. t.i.d. p.r.n. 8. Xopenex inhaler 1 to 2 puffs q.4 hours p.r.n. 9. Meloxicam 7.5 mg p.o. q.12 hours p.r.n. 10. Zofran 4 mg p.o. q.6 hours p.r.n. CONDITION ON DISCHARGE: Stable. DISCHARGE INSTRUCTIONS: Ms. Meneses is a 31-year-old female postoperative day 2, status post right hip arthroscopy with labral repair, which was uncomplicated. She is orthopedically and medically s table for discharge to go home with home services. Her labs and vital signs are stable. She will re start her home medications. She will remain 50% weightbearing until instructed by Dr. Lynch and wi ll use crutches for ambulation and she will continue to do her physical therapy exercises. She will take Dilaudid 2 mg every 4 hours as needed for pain control and Colace up to 3 times a day to preve nt constipation. She will follow up with Dr. Lynch in approximately 10 to 14 days for incision mark ck and suture removal. She was instructed to go to the ER should she develop chest pain or shortnes s of breath and to call the office with any fever, increasing pain, or redness. POPPY BLACKWOOD [id number]/[facility] #: [id number]
--- NOTE | 2017-05-16 11:09 | OP ---
CC: Primary Care Physician OPERATIVE REPORT: DATE OF OPERATION: 04/20/17 DATE OF : 85 SURGEON: Jose Manuel Lynch MD LIVESTOCK HANDLER: POPPY Prince ANESTHESIOLOGIST: Dr. Jose Elias Hollis. ANESTHESIA: General. COMPLICATIONS: None. ESTIMATED BLOOD LOSS: Minimal. IMPLANTS USED: Two Raymundo and Nephew Q-FIX anchors. PRE-OP DIAGNOSES: 1. 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 2. Iliopsoas tendonitis. POST-OP DIAGNOSES: 1. 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 2. Iliopsoas tendonitis. OPERATIVE PROCEDURE: Right hip arthroscopy with cam osteoplasty iliopsoas lengthening and arthroscopic labral repair. INDICATIONS: Devang Hendrix is a 31-year-old female with a 1- year history of right hip pain that began with exercise when doing a squat. She has failed conservative management including extensive physical therapy and MRI as well as an intraarticular injection confirmed the diagnosis. She has been limiting her activities and has had difficulties with activities of daily living. It is starting to interfere with her life. She has other medical issues significant which complicated her treatment as well because although she is able to take Mobic, she cannot take other antiinflammatories due to a significant migraine risk. She is able to take Mobic, although not on a daily basis. She does have history of depression and anxiety, history of an eating disorder. After an extensive discussion of the risks and benefits of operative versus nonoperative treatment, she has elected to proceed with arthroscopic right hip labral repair with osteoplasty as indicated as well as iliopsoas lengthening. Risks include but are not limited to bleeding, infection, damage to nerves, vessels, surrounding structures, the wound not healing, persistent pain, need for further surgery, risk of heterotopic ossification, scarring, stiffness, persistent pain, incomplete relief of symptoms, worsening arthritis, fracture, dislocation, risk of DVT, risk of anesthesia. She has elected to proceed because she is unable to take an extended course of antiinflammatories and can only take low-dose antiinflammatories periodically. We discussed that she may be at a high risk of heterotropic ossification and she was planned to have radiation to prevent HO. That has already been planned and will be performed by our radiology oncologist here. TRACTION TIME: About an hour and a half. FINDINGS: Traction provided good access to the hip joint without evidence of underlying hyperlaxity. Arthroscopic exam showed a large labral tear with poor quality tissue from 10 o'clock to 2 o'clock position. This was subluxed and had fraying as well as maceration. The unstable tear required repair and although the tissue did hold one of the sutures, it did tear through the second one and a repair was still obtained but the tissue quality was quite poor. There was a wave sign involving the articular cartilage, which indicated delamination of the acetabulum with positional labral tear. There was minimal damage to the acetabular cartilage and the femoral head cartilage was intact. DESCRIPTION OF PROCEDURE: The patient was greeted in the preoperative area by the attending surgeon. Correct extremity was marked and consent was confirmed. Thigh- high TOMAS stockings were placed in the nonoperative leg as well as SCD. The patient was then brought back to the operative suite where she was placed in the supine position on the operating table. She then underwent general anesthesia endotracheal intubation which she tolerated without difficulties. The patient, while being put to sleep, well-padded extremity boots were placed along the foot and ankle. Patient was brought into the leg holders and secured , after which with a large well-padded perineal stump, the patient was positioned distally on the bed with her legs secured in the traction. Gross traction was then applied to balance the pelvis, initially beginning with the nonoperative extremity, then the operative extremity was placed in dynamic leg winters using Raymundo and Nephew hip distraction system. The leg was placed in neutral at adduction with slight flexion, gentle internal rotation bringing the femoral neck parallel to the floor to help facilitate atraumatic access. The right arm was then secured over the patient. After the arm was secured, the C- arm was appropriately positioned and an AP pelvis of the hip was done. Gross traction was then applied to the operative extremity under sterile condition. An 18-gauge spinal needle was introduced into the joint to break the acetabular seal. After this was done, fine traction was applied to this joint and it was distracted to about 1.5 cm, which was shown on the large C- arm. Traction was then released. The right hip was then prepped and draped in the usual sterile fashion with a chlorhexidine soap and scrub, alcohol wipe and a final prep with ChloraPrep. After appropriate surgical pause indicating side, site, procedure and administration of antibiotics, traction was then placed back on the hip to allow for about 1.5 cm of distraction. The anterior peritrochanteric portal was then accessed using a long spinal needle which was confirmed under fluoroscopy. Then the cannula and arthroscope was passed through the joint atraumatically. Mid anterior portal was then made in similar fashion after needle localization. Once the cannula was placed atraumatically, a 70-degree scope was used to identify the hip including femoral head which had grade 0 changes. There was wave sign at the acetabular ridge, suggesting a labral tear. Labrum had unstable flap and it was degenerative and somewhat macerated, but the scope was then switched between the portals to make sure that no portal was penetrating the labrum and the irrigation pump was set to 40 mm to provide consistent pressure during the entirety of the case. Capsulotomy was then done using [place] blade, beginning anteriorly. First the compartment synovectomy was done using a full radius shaver to eliminate the snubbing that was visible with care to preserve the joint capsule medially. The capsular reflection was then cleared back and using electrocautery device, the fibers of the psoas were identified. These were then carefully released with care to not penetrate deeper to cause any damage to any blood vessels. Hemostasis was maintained at all times. The capsular reflection was then debrided back using electrocautery device to find the labrum as well as the acetabular edge. At this point, the [place] blade was used to release the labrum off the edge of the acetabulum and to protect it so that rim trimming could occur. A 5.5 mm round lisa was then used to perform rim trimming which was confirmed with the C-arm and cross- over sign was eliminated. The pincer was recontoured back to a stable edge and this was determined based on preoperative templating. This was carried out into the sub-spine area to make sure there was no AIIS impingement. Attention was directed to the acetabulum superolaterally. One Q-FIX anchor was placed with excellent purchase. The suture was then passed in a horizontal mattress configuration through the labrum and tie down with good purchase. A second anchor was placed anteriorly with excellent purchase and care not to damage the cartilage surface. The suture was then passed through the labrum which was poor quality and was found to tear straight through. At this point, there was a radial tear of the labrum. The decision was made that I would prefer to keep as much of the labrum as possible. Therefore it was carefully passed around the tissue that was torn and then tacked back. This was tied down and found to stabilize the labrum to where it was, although there was still evidence of a radial split tear. This was probed carefully and was found not to further tear. At this point, the traction was released. This was compared using the C-arm as well as arthroscopically. Femoral head and neck were then further visualized, exposing a moderate cam lesion. Preoperative templating was used as a guide for femoral neck osteoplasty, which was carried out using a 5.5 round lisa. Careful resection was carried out from superior to lateral, inferior to medial, with careful monitoring using the C-arm to ensure any elimination of femoral-sided impingement. Femoral head and neck was also normalized. Care was taken to prevent iatrogenic injury to the lateral popliteal vessels. Post resection, dynamic examination was done under direct visualization. The C-arm was used to ensure that there was no further bony impingement. At this point, meticulous hemostasis was obtained after careful evaluation of the labrum and soft tissue and removal of osseous debris in the peripheral spaces. The scope was withdrawn from the joint. Before the scope was withdrawn from the joint, spinal needle was placed into the joint and 3 cc of injectable saline and 30 mg of Toradol were intraarticularly injected into the hip. The skin incisions were then copiously irrigated in a layered fashion with a 2-0 Vicryl and 3-0 nylon. Portals were injected with 0.25% Marcaine for postoperative pain control. Sterile dressings were applied along with a Cryo/ Cuff and thigh-high TOMAS stockings. She was awoken from anesthesia, transferred to the PACU in stable condition. POSTOPERATIVE PLAN: She will be admitted to the hospital because she has significant neurological issues that require IV pain medication as she cannot tolerate oral medication. She will be placed on IV Dilaudid and hopefully transition to oral Dilaudid. She will undergo postoperative radiation as she cannot take antiinflammatories. She will be on DVT prophylaxis while inhouse, which will be subcutaneous heparin. She will be using the TOMAS stockings for the first 2 weeks. She is 50% weightbearing for the first 2 weeks. DVT prophylaxis was discussed and will be deferred when she is discharged. I will see her back in 10 to 14 days with x-rays of the hip. [id number]/[facility] #: [id number] MTDD
== END 2017-04-22 12:30 | disposition home or self-care (01) ==
LOC: OR 06:03 → INTOOBSV 12:51 → SSU 12:51
PROVIDERS: ADMIT Orthopaedic Surgery; ATTEND Orthopaedic Surgery
PROC: 0SJ94ZZ Inspection of Right Hip Joint, Percutaneous Endoscopic Approach (ICD-10-PCS; principal; 2017-04-20 07:30)
DX: S73.101A Unspecified sprain of right hip, initial encounter (principal); X58.XXXA Exposure to other specified factors, initial encounter; M25.551 Pain in right hip; J45.909 Unspecified asthma, uncomplicated; F32.9 Major depressive disorder, single episode, unspecified; F41.9 Anxiety disorder, unspecified; F50.9 Eating disorder, unspecified; G43.909 Migraine, unspecified, not intractable, without status migrainosus; Z79.899 Other long term (current) drug therapy; Z88.2 Allergy status to sulfonamides
CPT/HCPCS: 76001; 77014; 77280; 77307; 77332; 77387; 77412; 96374; 96375; 96376; A9270-GY; C1713; G0378; G8978-GP-CH; G8979-GP-CH; G8980-GP-CH; G8987-GO-CI; G8988-GO-CI; G8989-GO-CI; J0690; J1100; J1170; J1885; J2250; J2405; J2704; J3010

== ENCOUNTER 2017-06-27 12:22 | Emergency (ER) | payer BC ==
[2017-06-27] MEDS ORDERED: Ketorolac INJ* 30 MG/ML 1 ML VIAL IV PUSH ONE (19:29)
[2017-06-27] MEDS ORDERED: diPHENhydraMINE IV* 50 MG/ML 1 ml VIAL (BENADRYL) IV ONE (19:29)
[2017-06-27] MEDS ORDERED: Metoclopramide IV* 5 MG/ML 2 ML VIAL IV SLOW PU ONE (19:30)
[2017-06-27] MEDS ORDERED: NS 0.9% 1000 ML* 2,000 ML IV ONE (19:30)
[2017-06-27] MEDS ORDERED: HYDROmorphone* 1 MG/ML 1 ML SYR IV SLOW PU ONE (19:39)
--- NOTE | 2017-06-27 19:50 | ED ---
Headache - HPI Summary HPI Summary: 31F presents with one of the worst migraines of her life. She states is started at 3am today. She states it has been a 9/10 consistently. She states it started more as stiffness of her neck and then moved to the front of her head behind left eye which is typically. She also states that she has vomited twenty times today which is not typical of her. She states she normal gets Benadryl, reglan, toradol, and dilaudid. she took her normal migraine medication at home but vomited it up. She gets botox every 3 months. She admits to photophobia. She denies any fevers or tick exposures. She states she got in a fight with her and was crying a lot and is under a lot of emotional stress at the moment and things that is what triggered her migraines. - History Of Current Complaint Chief Complaint: EDHeadache Stated Complaint: HEADACHE,VOMITING Time Seen by Provider: 06/27/17 19:29 - Allergies/Home Medications Allergies/Adverse Reactions: Allergies Allergy/AdvReac Type Severity Reaction Status Date / Time Gluten Meal Allergy See Comment Verified 04/20/17 12:55 Prochlorperazine Allergy Swelling Verified 04/20/17 12:57 [From Compazine] Serotonin Reuptake Inhibitors Allergy See Comment Verified 04/20/17 12:56 Sulfa Antibiotics Allergy Hives Verified 04/13/17 09:37 Tramadol Allergy RASH AND Verified 04/13/17 09:37 HIVES ssri Allergy Severe See Comment Uncoded 04/20/17 06:18 DAIRY Allergy Unknown Uncoded 04/13/17 09:37 Reaction Details ENVIRONMENTAL ALLERGIES Allergy SNEEZING, Uncoded 04/13/17 09:37 COUGH, ITCHY WATERY EYES, RUNNY NOSE, STUFFY GLUTEN Allergy Unknown Uncoded 04/13/17 09:37 Reaction Details PMH/Surg Hx/FS Hx/Imm Hx Endocrine/Hematology History: Reports: Hx Anemia - HX OF BEFORE HYSTERECTOMY Denies: Hx Anticoagulant Therapy, Hx Diabetes, Hx Thyroid Disease Cardiovascular History: Reports: Hx Valvular Heart Disease - MVP WHEN YOUNGER, Other Cardiovascular Problems/Disorders - Mitral valve prolapse Denies: Hx Hypertension, Hx Pacemaker/ICD Respiratory History: Reports: Hx Asthma - PREMIE- A CHILD AND NOWEXERCISE INDUCED OR RESPIRATORY INFECTION, Hx Chronic Bronchitis, Hx Pneumonia, Hx Seasonal Allergies Denies: Hx Chronic Obstructive Pulmonary Disease (COPD) GI History: Reports: Hx Gastroesophageal Reflux Disease - per patient on Prilosec bid for condition, Other GI Disorders - HX OF eating disorder. anorexia History: Denies: Hx Dialysis, Hx Renal Disease Musculoskeletal History: Reports: Hx Scoliosis Denies: Hx Rheumatoid Arthritis, Hx Osteoporosis Sensory History: Denies: Hx Contacts or Glasses, Hx Eye Injury, Hx Hearing Aid, Hx Hearing Problem Opthamlomology History: Denies: Hx Contacts or Glasses, Hx Eye Injury Neurological History: Reports: Hx Headaches, Hx Migraine - HX OF CLUSTER HEADACHES SINCE AGE 12, Other Neuro Impairments/Disorders - PITIUTARY MASS- USUALLY TAKES MEDS TO HELP CONTROL- BUT IS OUT AT THIS TIME Denies: Hx Dementia, Hx Seizures Psychiatric History: Reports: Hx Anxiety - ON MEDICATION FOR, Hx Eating Disorder - anorexia/purging, Hx Depression - ON MEDICATION FOR, Hx Post Traumatic Stress Disorder, Hx Inpatient Treatment - [facility] [place], Hx [facility], Hx Suicide Attempt Denies: Hx Panic Disorder, Hx of Violent Episodes Against Others, Hx Substance Abuse - Surgical History Surgery Procedure, Year, and Place: 2007 HYSTERECTOMY, [place] SURGERY ON LEFT INDEX FINGER RECONNECTED NERVE. 2006 RIGHT SHOULDER REPAIR, [place]. 2001 & 2003 DILATION & CURETTAGE,. BILATERAL MYRINGOTOMY WITH TUBES A CHILD. EYE SURGERY TO CORRECT EYES (CROSSED EYED), A CHILD, Hx Anesthesia Reactions: Yes - NAUSEA AND AT TIMES MIGRAINES - Immunization History Date of Tetanus Vaccine: One year ago. Date of Influenza Vaccine: 10/05/16 Infectious Disease History: Denies: Hx Clostridium Difficile, Hx Hepatitis, Hx Human Immunodeficiency Virus (HIV), Hx Shingles, Hx Tuberculosis, Traveled Outside the in Last 30 Days - Family History Known Family History: Positive: None Negative: Cardiac Disease, Hypertension, Diabetes - Social History Alcohol Use: Occasionally Alcohol Amount: 0-3 drinks per week. last drink 2 nights ago Hx Substance Use: No Substance Use Type: Reports: None, Prescribed Hx Tobacco Use: No Smoking Status (MU): Never Smoked Tobacco Have You Smoked in the Last Year: No Review of Systems Negative: Fever Negative: Chest Pain Negative: Shortness Of Breath Positive: Vomiting, Nausea Positive: Headache All Other Systems Reviewed And Are Negative: Yes Physical Exam Triage Information Reviewed: Yes Vital Signs On Initial Exam: Initial Vitals Temp Pulse Resp BP Pulse Ox 97.1 F 84 16 122/69 100 06/27/17 12:26 06/27/17 12:26 06/27/17 12:26 06/27/17 12:26 06/27/17 12:26 Vital Signs Reviewed: Yes Appearance: Positive: Pain Distress Skin: Positive: Warm, Dry Head/Face: Positive: Normal Head/Face Inspection Eyes: Positive: Normal, EOMI, FLAKITA, Conjunctiva Clear ENT: Positive: Normal ENT inspection, Pharynx normal, TMs normal Neck: Positive: Supple, Nontender, No Lymphadenopathy Respiratory/Lung Sounds: Positive: Clear to Auscultation, Breath Sounds Present Cardiovascular: Positive: Normal, RRR Neurological: Positive: Sensory/Motor Intact, Alert, Oriented to Person Place, Time, CN Intact II-III, Heel to Toe, Finger to Nose - Reading Coma Scale Best Eye Response: 4 - Spontaneous Best Motor Response: 6 - Obeys Commands Best Verbal Response: 5 - Oriented Diagnostics - Vital Signs Vital Signs Temp Pulse Resp BP Pulse Ox 06/27/17 19:17 98.5 F 86 16 113/66 100 06/27/17 12:26 97.1 F 84 16 122/69 100 - Laboratory Result Diagrams: 06/27/17 20:07 06/27/17 20:07 Lab Statement: Any lab studies that have been ordered have been reviewed, and results considered in the medical decision making process. Headache Course/Dx - Course Course Of Treatment: Angelina presents with one of the worst migraines of her life. She states is started at 3am today. She states it has been a 9/10 consistently. She states it started more as stiffness of her neck and then moved to the front of her head behind left eye which is typically. She also states that she has vomited twenty times today which is not typical of her. She states she normal gets Benadryl, reglan, toradol, and dilaudid. she took a mexcolain at home but vomited it up. She gets botox every 3 months. normal neuro exam. attempted to contact neurologist but is not laboratory monitor. gave toradol, bendaryl, dilaudid and reglan and migraine resolved. labs normal. patient understands and agrees with plan. - Diagnoses Differential Diagnosis/HQI/PQRI: Migraine, Subarachnoid Hemorrhage, Tension Headache Provider Diagnoses: Migraine Discharge - Discharge Plan Condition: Good Disposition: HOME Patient Education Materials: Migraine Headache (ED) Referrals: Amie Sheets NP [Primary Care Provider] - Wendy Rubin MD [Medical Doctor] - Additional Instructions: Follow up with neurology Return to ED if develop any new or worsening symptoms
[2017-06-27] MEDS ORDERED: Dexamethasone IV* 4 MG/ML 1 ML (4 MG) IV SLOW PU ONE (19:52)
[2017-06-27 20:21] LABS: Hematocrit 43 % (35-47); Hemoglobin 14.2 g/dl (12.0-16.0); Mean Corpuscular HGB Conc 33 g/dl (31-36); Mean Corpuscular Hemoglobin 30 pg (27-31); Mean Corpuscular Volume 92 fL (80-97); Mean Platelet Volume 8 um3 (7.4-10.4); Red Blood Count 4.66 10^6/ul (4.0-5.4); Red Cell Distribution Width 13 % (10.5-15); White Blood Count 9.4 10^3/ul (3.5-10.8)
[2017-06-27 20:26] LABS: Anion Gap 16 mmol/L (2-11); EGFR African American 185.1 (>60); EGFR Non-African American 143.9 (>60); Manual Entry Verification MD; POC CO2 Carbon Dioxide 23 mmol/L (24-29); POC Chloride 101 mmol/L (98-109); POC Glucose 77 mg/dL (70-105); POC Potassium 3.4 mmol/L (3.5-4.9); POC Sodium 140 mmol/L (138-146)
[2017-06-27 21:55] VITALS: BP 121/71
[2017-06-27 22:08] LABS: ALT 14 U/L (7-52); AST 14 U/L (13-39); Albumin 4.4 g/dL (3.2-5.2); Alkaline Phosphatase 54 U/L (34-104); Anion Gap 10 mmol/L (2-11); BUN/Creatinine Ratio 16.9 (8-20); Blood Urea Nitrogen 11 mg/dL (6-24); CO2 Carbon Dioxide 23 mmol/L (22-32); Calcium 9.4 mg/dL (8.6-10.3); Chloride 104 mmol/L (101-111); EGFR African American 136.7 (>60); EGFR Non-African American 106.3 (>60); Glucose 76 mg/dL (70-100); Potassium 3.4 mmol/L (3.5-5.0); Sodium 137 mmol/L (133-145); Total Protein 7.4 g/dL (6.4-8.9)
== END 2017-06-27 22:11 | disposition home or self-care (01) ==
LOC: ED 12:22
DX: G43.909 Migraine, unspecified, not intractable, without status migrainosus (principal)
CPT/HCPCS: 36415; 80048; 80053; 84702; 85025; 96374; 96375; 99283; J1100; J1170; J1200; J1885

== ENCOUNTER 2017-07-15 07:35 | Emergency (ER) | payer BC ==
[2017-07-15] MEDS ORDERED: diPHENhydraMINE IV* 50 MG/ML 1 ml VIAL (BENADRYL) IV ONE (07:54)
[2017-07-15] MEDS ORDERED: Metoclopramide IV* 5 MG/ML 2 ML VIAL IV ONE (07:54)
[2017-07-15] MEDS ORDERED: Ketorolac INJ* 30 MG/ML 1 ML VIAL IV ONE (07:54)
[2017-07-15] MEDS: NS 0.9% 1000 ML* 2,000 ML IV ONE (08:35)
[2017-07-15 08:54] LABS: Hematocrit 40 % (35-47); Hemoglobin 13.7 g/dl (12.0-16.0); Mean Corpuscular HGB Conc 34 g/dl (31-36); Mean Corpuscular Hemoglobin 31 pg (27-31); Mean Corpuscular Volume 90 fL (80-97); Mean Platelet Volume 8 um3 (7.4-10.4); Red Blood Count 4.44 10^6/ul (4.0-5.4); Red Cell Distribution Width 13 % (10.5-15); White Blood Count 4.8 10^3/ul (3.5-10.8)
[2017-07-15 09:10] LABS: Albumin 4.3 g/dL (3.2-5.2); BUN/Creatinine Ratio 19.2 (8-20); Calcium 9.5 mg/dL (8.6-10.3); EGFR African American 110.8 (>60); EGFR Non-African American 86.1 (>60); Globulin 2.6 g/dL (2-4); Potassium 3.8 mmol/L (3.5-5.0); Total Bilirubin 0.7 mg/dL (0.2-1.0); Total Protein 6.9 g/dL (6.4-8.9)
[2017-07-15 09:30] LABS: Urine Bilirubin Negative (Negative); Urine Glucose Negative (Negative); Urine Nitrite Negative (Negative)
[2017-07-15] MEDS ORDERED: LORazepam INJ* 2 MG/ML 1 ML VIAL IV PUSH ONE (10:57)
[2017-07-15] MEDS ORDERED: Magnesium Sulfate 2 GM IV* 2 GM/50 ML BAG IVPB ONE (10:57)
[2017-07-15 12:06] LABS: Erythrocyte Sed Rate 10 mm/Hr (0-14)
[2017-07-15 12:58] VITALS: BP 132/86
--- NOTE | 2017-07-15 18:34 | ED ---
Durga Valderrama Angela, scribed for Geoffrey Willams MD on 07/15/17 at 0803 . Headache - HPI Summary HPI Summary: Pt is a 31 y/o female presenting to [facility] c/o migraines x2 weeks, worsening since yesterday. Pt reports she didn't sleep last night secondary to pain. She rates her pain 9 out of 10 in severity. Pt endorses photophobia and neck pain but denies fever. She notes this is a typical migraine and it is usually triggered by stress and food allergies. Pt states that she took Mobic for the pain with no relief. Her last cat scan was years ago. She notes she normally gets reglan, toradol, and dilaudid for the pain. Pt notes she has an appointment on the with Dr. Rubin. - History Of Current Complaint Chief Complaint: EDHeadache Stated Complaint: HEADACHE Time Seen by Provider: 07/15/17 07:50 Hx Obtained From: Patient Onset/Duration: Started weeks ago, Worse Since - yesterday Currently Pain Is: Current Pain Scale(0-10)= - 9 Timing: Weeks Character: Migraine Allevating Factors: Nothing Associated Signs And Symptoms: Neck Stiffness - Neck pain, Other (Noted In Comments) - Photophobia - Allergies/Home Medications Allergies/Adverse Reactions: Allergies Allergy/AdvReac Type Severity Reaction Status Date / Time Gluten Meal Allergy See Comment Verified 07/15/17 07:39 Prochlorperazine Allergy Swelling Verified 07/15/17 07:39 [From Compazine] Serotonin Reuptake Inhibitors Allergy See Comment Verified 07/15/17 07:39 Sulfa Antibiotics Allergy Hives Verified 07/15/17 07:39 Tramadol Allergy RASH AND Verified 07/15/17 07:39 HIVES ssri Allergy Severe See Comment Uncoded 07/15/17 07:39 DAIRY Allergy Unknown Uncoded 07/15/17 07:39 Reaction Details ENVIRONMENTAL ALLERGIES Allergy SNEEZING, Uncoded 07/15/17 07:39 COUGH, ITCHY WATERY EYES, RUNNY NOSE, STUFFY GLUTEN Allergy Unknown Uncoded 07/15/17 07:39 Reaction Details PMH/Surg Hx/FS Hx/Imm Hx Endocrine/Hematology History: Reports: Hx Anemia - HX OF BEFORE HYSTERECTOMY Denies: Hx Anticoagulant Therapy, Hx Diabetes, Hx Thyroid Disease Cardiovascular History: Reports: Hx Valvular Heart Disease - MVP WHEN YOUNGER, Other Cardiovascular Problems/Disorders - Mitral valve prolapse Denies: Hx Hypertension, Hx Pacemaker/ICD Respiratory History: Reports: Hx Asthma - PREMIE- A CHILD AND NOWEXERCISE INDUCED OR RESPIRATORY INFECTION, Hx Chronic Bronchitis, Hx Pneumonia, Hx Seasonal Allergies Denies: Hx Chronic Obstructive Pulmonary Disease (COPD) GI History: Reports: Hx Gastroesophageal Reflux Disease - per patient on Prilosec bid for condition, Other GI Disorders - HX OF eating disorder. anorexia History: Denies: Hx Dialysis, Hx Renal Disease Musculoskeletal History: Reports: Hx Scoliosis Denies: Hx Rheumatoid Arthritis, Hx Osteoporosis Sensory History: Denies: Hx Contacts or Glasses, Hx Eye Injury, Hx Hearing Aid, Hx Hearing Problem Opthamlomology History: Denies: Hx Contacts or Glasses, Hx Eye Injury Neurological History: Reports: Hx Headaches, Hx Migraine - HX OF CLUSTER HEADACHES SINCE AGE 12, Other Neuro Impairments/Disorders - PITIUTARY MASS- USUALLY TAKES MEDS TO HELP CONTROL- BUT IS OUT AT THIS TIME Denies: Hx Dementia, Hx Seizures Psychiatric History: Reports: Hx Anxiety - ON MEDICATION FOR, Hx Eating Disorder - anorexia/purging, Hx Depression - ON MEDICATION FOR, Hx Post Traumatic Stress Disorder, Hx Inpatient Treatment - [facility] [place], Hx [facility], Hx Suicide Attempt Denies: Hx Panic Disorder, Hx of Violent Episodes Against Others, Hx Substance Abuse - Surgical History Surgery Procedure, Year, and Place: 2007 HYSTERECTOMY, [place] SURGERY ON LEFT INDEX FINGER RECONNECTED NERVE. 2006 RIGHT SHOULDER REPAIR, [place]. 2001 & 2003 DILATION & CURETTAGE,. BILATERAL MYRINGOTOMY WITH TUBES A CHILD. EYE SURGERY TO CORRECT EYES (CROSSED EYED), A CHILD, Hx Anesthesia Reactions: Yes - NAUSEA AND AT TIMES MIGRAINES - Immunization History Date of Tetanus Vaccine: One year ago. Date of Influenza Vaccine: 10/05/16 Infectious Disease History: Denies: Hx Clostridium Difficile, Hx Hepatitis, Hx Human Immunodeficiency Virus (HIV), Hx Shingles, Hx Tuberculosis, Traveled Outside the [place] in Last 30 Days - Family History Known Family History: Positive: None Negative: Cardiac Disease, Hypertension, Diabetes - Social History Alcohol Use: Occasionally Alcohol Amount: 0-3 drinks per week. last drink 2 nights ago Hx Substance Use: No Substance Use Type: Reports: None, Prescribed Hx Tobacco Use: No Smoking Status (MU): Never Smoked Tobacco Have You Smoked in the Last Year: No Review of Systems Negative: Fever, Chills Positive: Photophobia Positive: Other - Neck pain Positive: Headache - migraine All Other Systems Reviewed And Are Negative: Yes Physical Exam - Summary Physical Exam Summary: VITAL SIGNS: Reviewed. GENERAL: Patient is a well-developed and nourished female who is lying comfortable in the stretcher. Patient is not in any acute respiratory distress. HEAD AND FACE: No signs of trauma. No ecchymosis, hematomas or skull depressions. No sinus tenderness. EYES: PERRLA, EOMI x 2, No injected conjunctiva, no nystagmus. EARS: Hearing grossly intact. Ear canals and tympanic membranes are within normal limits. MOUTH: Oropharynx within normal limits. NECK: Supple, neck with full ROM. CHEST: Symmetric, no tenderness at palpation LUNGS: Clear to auscultation bilaterally. No wheezing or crackles. CVS: Regular rate and rhythm, S1 and S2 present, no murmurs or gallops appreciated. ABDOMEN: Soft, non-tender. No signs of distention. EXTREMITIES: FROM in all major joints, no edema, no cyanosis or clubbing. NEURO: Alert and oriented x 3. No acute neurological deficits. Speech is normal and follows commands. SKIN: Dry and warm Triage Information Reviewed: Yes Vital Signs On Initial Exam: Initial Vitals Temp Pulse Resp BP Pulse Ox 98 F 84 16 137/91 99 07/15/17 07:39 07/15/17 07:39 07/15/17 07:39 07/15/17 07:39 07/15/17 07:39 Vital Signs Reviewed: Yes Diagnostics - Vital Signs Vital Signs Temp Pulse Resp BP Pulse Ox 07/15/17 07:39 98 F 84 16 137/91 99 - Laboratory Lab Results: Lab Results 07/15/17 07/15/17 07/15/17 Range/Units 08:42 08:42 09:17 WBC 4.8 (3.5-10.8) 10^3/ul RBC 4.44 (4.0-5.4) 10^6/ul Hgb 13.7 (12.0-16.0) g/dl Hct 40 (35-47) % MCV 90 (80-97) fL MCH 31 (27-31) pg MCHC 34 (31-36) g/dl RDW 13 (10.5-15) % Plt Count 227 (150-450) 10^3/ul MPV 8 (7.4-10.4) um3 Neut % (Auto) 59.9 (38-83) % Lymph % (Auto) 29.5 (25-47) % Weston % (Auto) 8.5 (1-9) % Eos % (Auto) 1.6 (0-6) % Baso % (Auto) 0.5 (0-2) % Absolute Neuts (auto) 2.9 (1.5-7.7) 10^3/ul Absolute Lymphs (auto) 1.4 (1.0-4.8) 10^3/ul Absolute Monos (auto) 0.4 (0-0.8) 10^3/ul Absolute Eos (auto) 0.1 (0-0.6) 10^3/ul Absolute Basos (auto) 0 (0-0.2) 10^3/ul Absolute Nucleated RBC 0 10^3/ul Nucleated RBC % 0.1 ESR 10 (0-14) mm/Hr Sodium 138 (133-145) mmol/L Potassium 3.8 (3.5-5.0) mmol/L Chloride 104 (101-111) mmol/L Carbon Dioxide 28 (22-32) mmol/L Anion Gap 6 (2-11) mmol/L BUN 15 (6-24) mg/dL Creatinine 0.78 (0.51-0.95) mg/dL Est GFR ( Amer) 110.8 (>60) Est GFR (Non-Af Amer) 86.1 (>60) BUN/Creatinine Ratio 19.2 (8-20) Glucose 92 (70-100) mg/dL Calcium 9.5 (8.6-10.3) mg/dL Total Bilirubin 0.70 (0.2-1.0) mg/dL AST 13 (13-39) U/L ALT 16 (7-52) U/L Alkaline Phosphatase 48 (34-104) U/L Total Protein 6.9 (6.4-8.9) g/dL Albumin 4.3 (3.2-5.2) g/dL Globulin 2.6 (2-4) g/dL Albumin/Globulin Ratio 1.7 (1-3) Urine Color Yellow Urine Appearance Cloudy Urine pH 6.0 (5-9) Ur Specific Bailey 1.009 L (1.010-1.030) Urine Protein Negative (Negative) Urine Ketones Negative (Negative) Urine Blood Negative (Negative) Urine Nitrate Negative (Negative) Urine Bilirubin Negative (Negative) Urine Urobilinogen Negative (Negative) Ur Leukocyte Esterase Negative (Negative) Urine Glucose Negative (Negative) Result Diagrams: 07/15/17 08:42 07/15/17 08:42 Lab Statement: Any lab studies that have been ordered have been reviewed, and results considered in the medical decision making process. Re-Evaluation - Re-Evaluation First Eval Re-Evaluation Time: 10:56 Comment: Pt's symptoms have improved slightly. Headache Course/Dx - Course Assessment/Plan: Pt is a 31 y/o female presenting to [facility] c/o migraines x2 weeks, worsening since yesterday. Pt reports she didn't sleep last night secondary to pain. She rates her pain 9 out of 10 in severity. Pt endorses photophobia and neck pain but denies fever. She notes this is a typical migraine and it is usually triggered by stress and food allergies. Pt states that she took Mobic for the pain with no relief. Her last cat scan was years ago. She notes she normally gets reglan, toradol, and dilaudid for the pain.Test result with no significant abnormalities. Pt notes she has an appointment on the with Dr. Rubin.The pt was given a standard treatment for migraine exacerbation, with IV fluids, Benadryl, Toradol and Reglan. The pt reports that these medications slightly improved her pain and she requested Dilaudid, which is the medication that usually controls her migraine headache. She reports that she takes 2 mg of Dilaudid chronically at home to control her hip pain and migraine headaches. However, I am uncomfortable giving Dilaudid specially when she already takes it at home and it doesnt control her pain. Therefore, I discussed the case with Dr. Lynch from neurology, who recommends to try steroids, magnesium, or Depakote. The pt accepts to only take magnesium as she reports Depakote helps very minimally and gets anxiety exacerbation from this. Therefore, she was given Ativan 0.5 mg IV and 2 grams of magnesium. After these medications, she reports her symptoms improved and actually wants to go home. Therefore, the pt will follow up with Dr. Rubin. Before being discharged the pt is neurologically intact with no acute or neurological focal deficits. Pt is ambulating out of the ED. At this point I discussed all the findings and test results with the patient and patients parents. They were instructed to return to the emergency room immediately if any of the symptoms return or worsens. They understand and agree. Neurological exam before discharge : Patient is alert and oriented x 3. No acute neurological deficits. Patient vital signs are stable. Patient is to follow up with the [facility] in the next 2 3 days. They understand and agree. Plan of care was discussed with the patient and patient understands and agrees with the plan of care. All questions were answered at patient satisfaction. There were no further complaints or concerns. - Diagnoses Differential Diagnosis/HQI/PQRI: Migraine, Sinus Headache, Tension Headache, Viral Syndrome Provider Diagnoses: Migraine headache Discharge - Discharge Plan Condition: Stable Disposition: HOME Patient Education Materials: Migraine Headache (ED) Referrals: Amie Sheets NP [Primary Care Provider] - Additional Instructions: Your blood pressure was elevated during today's visit. Please follow up with your primary care physician. The documentation as recorded by the Durga singh Angela accurately reflects the service I personally performed and the decisions made by me, Geoffrey Willams MD.
== END 2017-07-15 12:56 | disposition home or self-care (01) ==
LOC: ED 07:35
DX: G43.909 Migraine, unspecified, not intractable, without status migrainosus (principal); M54.2 Cervicalgia; H53.149 Visual discomfort, unspecified
CPT/HCPCS: 36415; 80053; 81003; 85025; 85652; 96374; 96375; 99283; J1200; J1885; J2060; J2765; J3475

== ENCOUNTER 2018-05-13 02:09 | Emergency (ER) | payer BC ==
[2018-05-13] MEDS ORDERED: methylPREDNISolone 125 MG* 2 ML VIAL IV ONE (02:52)
[2018-05-13] MEDS ORDERED: Metoclopramide IV* 5 MG/ML 2 ML VIAL IV ONE (02:52)
[2018-05-13] MEDS ORDERED: Ketorolac INJ* 30 MG/ML 1 ML VIAL IV PUSH ONE (02:52)
[2018-05-13 04:42] VITALS: BP 129/84
--- NOTE | 2018-05-30 10:54 | ED ---
Dominic Valderrama Natalie, scribed for Kevin Torres MD on 05/13/18 at 0254 . Headache - HPI Summary HPI Summary: The patient is a 32 y/o F presenting to the ED c/o migraine starting yesterday. The headache, which is currently rated as 7/10 in severity, is located over the left eye. She has had associated symptoms of nausea and vomiting yesterday, but not today. She denies weakness and numbness in her extremities. She gets headaches often, for which she gets Botox injections for. She has treated the pain with Tylenol and Benadryl to no relief. - History Of Current Complaint Chief Complaint: EDHeadache Stated Complaint: HEADACHE Time Seen by Provider: 05/13/18 02:41 Hx Obtained From: Patient Onset/Duration: Sudden Onset, Started hours ago, Still Present Initially Headache Was: Moderate Currently Pain Is: Current Pain Scale(0-10)= - 7 Timing: Hours Location of Headache: Frontal - over left eye Aggravating Factor: Bright Lights Allevating Factors: Nothing Associated Signs And Symptoms: Nausea, Vomiting, Visual Changes - photophobia - Allergies/Home Medications Allergies/Adverse Reactions: Allergies Allergy/AdvReac Type Severity Reaction Status Date / Time codeine Allergy Hives Verified 05/13/18 02:18 gluten Allergy See Comment Verified 05/13/18 02:18 prochlorperazine Allergy Swelling Verified 05/13/18 02:18 [From Compazine] Sulfa (Sulfonamide Allergy Hives Verified 05/13/18 02:18 Antibiotics) tramadol Allergy Hives Verified 05/13/18 02:18 ssri Allergy Severe See Comment Uncoded 05/13/18 02:18 DAIRY Allergy Unknown Uncoded 05/13/18 02:18 Reaction Details ENVIRONMENTAL ALLERGIES Allergy SNEEZING, Uncoded 05/13/18 02:18 COUGH, ITCHY WATERY EYES, RUNNY NOSE, STUFFY GLUTEN Allergy Unknown Uncoded 05/13/18 02:18 Reaction Details PMH/Surg Hx/FS Hx/Imm Hx Endocrine/Hematology History: Reports: Hx Anemia - HX OF BEFORE HYSTERECTOMY Denies: Hx Anticoagulant Therapy, Hx Diabetes, Hx Thyroid Disease Cardiovascular History: Reports: Hx Valvular Heart Disease - MVP WHEN YOUNGER, Other Cardiovascular Problems/Disorders - Mitral valve prolapse Denies: Hx Hypertension, Hx Pacemaker/ICD Respiratory History: Reports: Hx Asthma - PREMIE- A CHILD AND NOWEXERCISE INDUCED OR RESPIRATORY INFECTION, Hx Chronic Bronchitis, Hx Pneumonia, Hx Seasonal Allergies Denies: Hx Chronic Obstructive Pulmonary Disease (COPD) GI History: Reports: Hx Gastroesophageal Reflux Disease - per patient on Prilosec bid for condition, Other GI Disorders - HX OF eating disorder. anorexia History: Denies: Hx Dialysis, Hx Renal Disease Musculoskeletal History: Reports: Hx Scoliosis Denies: Hx Rheumatoid Arthritis, Hx Osteoporosis Sensory History: Denies: Hx Contacts or Glasses, Hx Eye Injury, Hx Hearing Aid, Hx Hearing Problem Opthamlomology History: Denies: Hx Contacts or Glasses, Hx Eye Injury Neurological History: Reports: Hx Headaches, Hx Migraine - HX OF CLUSTER HEADACHES SINCE AGE 12, Other Neuro Impairments/Disorders - PITIUTARY MASS- USUALLY TAKES MEDS TO HELP CONTROL- BUT IS OUT AT THIS TIME Denies: Hx Dementia, Hx Seizures Psychiatric History: Reports: Hx Anxiety - ON MEDICATION FOR, Hx Eating Disorder - anorexia/purging, Hx Depression - ON MEDICATION FOR, Hx Post Traumatic Stress Disorder, Hx Inpatient Treatment - [place], Hx [facility], Hx Suicide Attempt Denies: Hx Panic Disorder, Hx of Violent Episodes Against Others, Hx Substance Abuse - Surgical History Surgery Procedure, Year, and Place: 2007 HYSTERECTOMY, [place];. SURGERY ON LEFT INDEX FINGER RECONNECTED NERVE;. 2006 RIGHT SHOULDER REPAIR, [place];. 2001 & 2003 DILATION & CURETTAGE;. BILATERAL MYRINGOTOMY WITH TUBES A CHILD; . EYE SURGERY TO CORRECT EYES (CROSSED EYED), A CHILD;. 03/2017 RT HIP - LABRAL TEAR ;. Oct 2ND HIP LABRAL TEAR REPAIR RIGHT SIDE; Hx Anesthesia Reactions: Yes - NAUSEA AND AT TIMES MIGRAINES - Immunization History Date of Tetanus Vaccine: One year ago. Date of Influenza Vaccine: 10/05/16 Infectious Disease History: No Infectious Disease History: Denies: Hx Clostridium Difficile, Hx Hepatitis, Hx Human Immunodeficiency Virus (HIV), Hx Shingles, Hx Tuberculosis, Traveled Outside the [place] in Last 30 Days - Family History Known Family History: Negative: Cardiac Disease, Hypertension, Diabetes - Social History Alcohol Use: Occasionally Alcohol Amount: 0-3 drinks per week. last drink 2 nights ago Hx Substance Use: No Substance Use Type: Reports: None Hx Tobacco Use: No Smoking Status (MU): Never Smoked Tobacco Have You Smoked in the Last Year: No Review of Systems Positive: Photophobia Positive: Vomiting, Nausea Positive: Headache. Negative: Weakness - in extremities, Numbness - in extremities All Other Systems Reviewed And Are Negative: Yes Physical Exam - Summary Physical Exam Summary: Appearance: Well-appearing, no distress, Well-nourished Skin: Warm, color reflects adequate perfusion Head: Normal Head/Face inspection Eyes: Conjunctiva clear ENT: Normal inspection Neck: Supple, no nodes, no JVD. Respiratory: Lungs clear, Normal breath sounds, no respiratory distress Cardio: RRR, No murmur, pulses normal, brisk capillary refill Abdomen: soft, nontender, no guarding, no rebound Bowel sounds: present Musculoskeletal: Strength Intact/ ROM intact. No calf tenderness. No edema. Neuro: Alert, muscle tone normal, facial symmetry, speech normal, sensory/motor intact Psychological: Normal Triage Information Reviewed: Yes Vital Signs On Initial Exam: Initial Vitals Temp Pulse Resp BP Pulse Ox 97.4 F 81 16 124/88 99 05/13/18 02:15 05/13/18 02:15 05/13/18 02:15 05/13/18 02:15 05/13/18 02:15 Vital Signs Reviewed: Yes Diagnostics - Vital Signs Vital Signs Temp Pulse Resp BP Pulse Ox 05/13/18 02:15 97.4 F 81 16 124/88 99 - Laboratory Lab Statement: Any lab studies that have been ordered have been reviewed, and results considered in the medical decision making process. Re-Evaluation - Re-Evaluation First Eval Re-Evaluation Time: 03:53 Change: Improved - pT'S PAIN NOW 4/10. PT SYMPTOMATICALLY IMPROVED. Headache Course/Dx - Diagnoses Provider Diagnoses: Migraine Discharge - Sign-Out/Discharge Documenting (check all that apply): Discharge/Admit/Transfer - The pt will be discharged home under stable conditions. - Discharge Plan Condition: Stable Disposition: HOME Patient Education Materials: Migraine Headache (ED) Referrals: Syvlia Baeza MD [Primary Care Provider] - 3 Days Additional Instructions: Follow up with your primary care provider in 3 days. Return to the emergency department for any new or worsening symptoms. - Billing Disposition and Condition Condition: STABLE Disposition: Home The documentation as recorded by the Dominic singh Natalie accurately reflects the service I personally performed and the decisions made by Brian villareal Omari A, MD.
== END 2018-05-13 04:44 | disposition home or self-care (01) ==
LOC: ED 02:09
DX: G43.909 Migraine, unspecified, not intractable, without status migrainosus (principal); R11.2 Nausea with vomiting, unspecified
CPT/HCPCS: 96374; 96375; 99283; J1885; J2765; J2930